=== PATIENT | male | born 2000 | race African-American/Black ===

== ENCOUNTER 2019-09-10 01:14 | Emergency (ER) | payer OTHER, MEDICARE ==
[~2019-09-10] VITALS: Ht 175.3 cm; Wt 87.0 kg
[2019-09-10] MEDS ORDERED: IBUPROFEN 800MG TABLET PO ONE (02:15)
[2019-09-10] MEDS ORDERED: HYDROCODONE/ACETAMINOPHEN 5/325MG TABLET PO ONE (03:45)
[2019-09-10 04:21] VITALS: BP 135/54
== END 2019-09-10 04:47 | disposition home or self-care (01) ==
LOC: ER 01:14
DX: S00.93XA Contusion of unspecified part of head, initial encounter (principal); R51 Headache; M25.552 Pain in left hip; M25.572 Pain in left ankle and joints of left foot; R07.89 Other chest pain; F17.200 Nicotine dependence, unspecified, uncomplicated; V49.88XA Car occupant (driver) (passenger) injured in other specified transport accidents, initial encounter; Y93.89 Activity, other specified; Y92.89 Other specified places as the place of occurrence of the external cause; Y99.8 Other external cause status
CPT/HCPCS: 71045; 72192; 73502; 73610; 99285

== ENCOUNTER 2022-02-16 14:40 | Emergency (ER) | payer MEDICAID, MEDICARE, OTHER ==
[~2022-02-16] VITALS: Ht 175.3 cm; Wt 134.0 kg
[2022-02-16] MEDS ORDERED: HYDROCODONE/ACETAMINOPHEN 5/325MG TABLET PO ONE (16:15)
[2022-02-16 16:22] VITALS: BP 143/77
[2022-02-16] MEDS ORDERED: HYDR-4001 MT (17:25)
== END 2022-02-16 17:46 | disposition home or self-care (01) ==
LOC: ER 14:40
DX: S62.395A Other fracture of fourth metacarpal bone, left hand, initial encounter for closed fracture (principal); S09.8XXA Other specified injuries of head, initial encounter; V43.52XA Car driver injured in collision with other type car in traffic accident, initial encounter; Y93.89 Activity, other specified; Y92.488 Other paved roadways as the place of occurrence of the external cause
CPT/HCPCS: 29125; 73110; 73130; 99284

== ENCOUNTER 2022-02-28 12:08 | Emergency (ER) | payer OTHER ==
[~2022-02-28] VITALS: Ht 172.7 cm; Wt 103.0 kg
[~2022-02-28 12:08] MED LIST: HYDR-4001 MT
[2022-02-28 12:29] VITALS: BP 118/67
== END 2022-02-28 13:34 | disposition home or self-care (01) ==
LOC: ER 12:08
DX: S62.395A Other fracture of fourth metacarpal bone, left hand, initial encounter for closed fracture (principal); X58.XXXA Exposure to other specified factors, initial encounter; Y93.89 Activity, other specified; Y92.89 Other specified places as the place of occurrence of the external cause; Z46.89 Encounter for fitting and adjustment of other specified devices
CPT/HCPCS: 29125; 99283